=== PATIENT | male | born 1970 | race Caucasian/White ===

== ENCOUNTER 2021-11-13 17:00 | Emergency (ER) | payer MEDICAID, SELFPAY ==
[2021-11-13 17:05] VITALS: BP 152/98; PULSE 92; RESP 14; TEMP 36.5; O2SAT 98; BMI 28.7
--- NOTE | 2021-11-13 17:43 | XRR_ITS ---
PROCEDURE INFORMATION: Exam: XR Abdomen Exam date and time: 11/13/2021 5:52 PM Age: 51 years old Clinical indication: Nausea and vomiting; Additional info: Abd pain TECHNIQUE: Imaging protocol: Radiologic exam of the abdomen. Views: Frontal supine view of the abdomen. 1 View. COMPARISON: No relevant prior studies available. FINDINGS: Gastrointestinal tract: Large amount of apparent gastric contents. Negative for bowel dilation to indicate obstruction. Bones/joints: Unremarkable. XR/XR KUB portable [id number] IMPRESSION: 1. Large amount of apparent gastric contents. 2. Negative for bowel dilation to indicate obstruction.
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
[2021-11-13 18:24] LABS: Basophils % 0.7 %; Eosinophils # 0.1 10^3/uL (0.0-0.8); Hematocrit 36.6 % (42.0-52.0); Hemoglobin 11.9 g/dL (11.7-16.6); Lymphocytes # 1.7 10^3/uL (0.8-4.8); Lymphocytes % 30.8 %; Mean Corpuscular HGB Conc 32.5 g/dL (30.0-36.0); Mean Corpuscular Hemoglobin 34.2 pg (28.0-34.0); Mean Corpuscular Volume 105.2 fl (80-94); Mean Platelet Volume 12.2 fL (7.4-10.4); Monocytes # 0.6 10^3/uL (0.2-0.9); Neutrophils # 3.06 10^3/uL (1.8-7.7); Nucleated Red Blood Cells % 0 %; Platelet Count 50 10^3/cmm (130-400); Red Blood Count 3.48 10^6/uL (4.1-5.3); Red Cell Distribution Width 16.4 % (12.1-15.1); White Blood Count 5.5 10^3/uL (4.0-10.0)
[2021-11-13 18:56] LABS: Add Urine Microscopic? YES; Bilirubin Urine 1+ (Negative); Blood Urine Neg (Negative); Glucose Urine UA Norm (Normal); Ketones Urine 1+ (Negative); Leukocyte Esterase Urine 2+ (Negative); Nitrate Urine Negative (Negative); Protein Urine Neg (Negative); Specific Gravity, Urine 1.025 (1.005-1.030); Urine Appearance Clear (CLEAR); Urine Color Dark Yellow (Yellow); Urobilinogen Urine 4 mg/dL (Negative); pH Urine 5 (5-7)
[2021-11-13 18:58] LABS: Bacteria Urine 1+ /hpf; Calcium Oxalate Crystals Urine 15-25 /hpf; Mucus Urine 1+ /hpf; Squamous Epithelial Cell Urine RARE /hpf (0-5); WBC Urine 15-25 /hpf (0-5)
[2021-11-13 18:59] LABS: Add Urine Culture? Yes
[2021-11-13 19:19] LABS: Alanine Aminotransferase 105 U/L (0-41); Albumin Level 3.1 g/dL (3.5-5.2); Alkaline Phosphatase 157 U/L (40-130); Anion Gap 14.1 (5-19); Aspartate Amino Transferase 151 U/L (0-40); Blood Urea Nitrogen 13 mg/dL (6-20); Calcium 8.4 mg/dL (8.5-10.5); Carbon Dioxide 22 mmol/L (22-29); Chloride 109 mmol/L (98-107); Globulin 3.5 g/dL (1.3-4.6); Glomerular Filtration Rate 119.9 mL/min (90-130); Glucose 81 mg/dL (65-115); Lipase 32 U/L (13-60); Osmolality Calculated 291 mOsm/kg (285-295); Potassium 4.1 mmol/L (3.5-5.1); Sodium 141 mmol/L (136-145); Total Bilirubin 2.1 mg/dL (0.15-1.2); Total Protein 6.6 g/dL (6.6-8.7)
[2021-11-13 20:17] VITALS: RESP 16; O2SAT 98
== END 2021-11-13 20:19 | disposition home or self-care (01) ==
PROVIDERS: Emergency Provider Student in an Organized Health Care Education/Training Program
DX: N30.00 Acute cystitis without hematuria (principal); R10.9 Unspecified abdominal pain
CPT/HCPCS: 36415; 74018; 80053; 81001; 83690; 85025; 87086; 99284

== ENCOUNTER 2023-06-24 15:23 | Emergency (ER) | payer MEDICAID, SELFPAY ==
[2023-06-24 15:35] VITALS: BP 196/68; PULSE 80; RESP 18; TEMP 36.5; O2SAT 98
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
--- NOTE | 2023-06-24 16:01 | DCPLANNER ---
Sent follow up request to wound care
[2023-06-24] MEDS: amoxicillin-clav 875-125 mg Tablet 1 TAB PO (16:12)
[2023-06-24] MEDS: bacitracin ointment Pkt 1 EACH TOPICAL (16:12)
[2023-06-24] MEDS: HYDROcodone-acetaminophen 10-325 mg Tablet 1 TAB PO (16:12)
[2023-06-24] MEDS: tetanus-dipt-pertussis 0.5 mL SDV IM (16:18)
[2023-06-24 16:23] VITALS: BP 196/68; PULSE 80; RESP 18; TEMP 36.5; O2SAT 98
== END 2023-06-24 16:24 | disposition home or self-care (01) ==
PROVIDERS: Emergency Provider Nurse Practitioner Family
DX: T23.261A Burn of second degree of back of right hand, initial encounter (principal); X08.8XXA Exposure to other specified smoke, fire and flames, initial encounter; Z23 Encounter for immunization
CPT/HCPCS: 90715; 99283